=== PATIENT | male | born 1975 | race Caucasian/White ===

== ENCOUNTER → 2024-03-22 10:29 | Outpatient (BNVA) | payer MEDICARE, SELFPAY | PROVIDERS: PCP Family Medicine; Visit Provider Family Medicine | DX: G47.01 Insomnia due to medical condition (principal); E78.5 Hyperlipidemia, unspecified; R73.03 Prediabetes; R63.4 Abnormal weight loss; R11.0 Nausea; K29.30 Chronic superficial gastritis without bleeding; R19.7 Diarrhea, unspecified | CPT/HCPCS: 80053; 83036; 83690; 84439; 84443; 85025 ==

== ENCOUNTER 2024-07-01 18:26 | Emergency (ER) | payer MEDICARE, SELFPAY ==
[2024-07-01 18:31] VITALS: BP 173/94; PULSE 64; TEMP 36.9; O2SAT 98; BMI 25.2
--- NOTE | 2024-07-01 18:44 | ED_ITS ---
HPI - Dental/Oral General: Chief complaint: Dental/Oral Stated complaint: Left Side of Face Pain Time Seen by Provider: 07/01/24 18:37 Source: patient Mode of arrival: ambulatory Limitations: no limitations History of Present Illness: 48-year-old male who states that he has been having left lower dental pain for the last week. He has a history of poor dentition states been try to get a dentist but is not able to denies any fevers denies any trismus rates pain a 4 out of 10 denies any worse improving factors. Associated symptoms: Denies fever(s) Related Data Previous Rx's ?Medication ?Instructions ?Recorded epinephrine 0.3 mg/0.3 mL 0.3 mg (0.3 mL) IM Q4H PRN s evere 07/26/23 injection, auto-injector allergic reaction #2 ea venlafaxine 75 mg capsule,extended See Rx Instructions .Route 03/18/24 release 24 hr .COMPLEX #90 caps omeprazole 20 mg capsule,delayed 20 mg PO DAILY #60 ca ps 03/22/24 release atorvastatin 20 mg tablet 20 mg PO DAILY dyslipidemia #90 05/03/24 tabs lisinopril 5 mg tablet 5 mg PO DAILY #90 tabs 05/03 quetiapine 100 mg tablet See Rx Instructions .Route 0 06/20/24 .COMPLEX #90 tabs cephalexin 500 mg capsule 500 mg PO TID 7 days #21 cap s 07/01/24 naproxen 500 mg tablet (Naprosyn) 500 mg PO BID PRN pa in #20 tabs 07/01/24 Allergies Allergy/AdvReac Type Severity Reaction Status Date / Time bees Allergy hives and Uncoded 07/01/24 18:37 throat closes up Review of Systems Const: Denies: fever(s), chills, body aches or change in appetite ENMT: Reports: dental pain; Denies: throat pain Card: Denies: chest pain Resp: Denies: dyspnea GI: Denies: abdominal pain, nausea, vomiting or diarrhea Musc: Denies: neck pain or back pain Skin/Breast: Denies: rash Neuro: Denies: headache(s) PFSH ED PFSH: Medical History Prediabetes Insomnia Hypertension Dyslipidemia Bee sting allergy Bipolar 1 disorder Marijuana dependence Surgical History H/O thumb surgery Left Family History Father No problems noted. 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[employer] Physical Exam Const: COMMON NORMALS: no acute distress, patient oriented x3 and healthy a ppearing HENMT: COMMON NORMALS: normocephalic and atraumatic HEAD & SCALP: normocephalic and atraumatic OTHER: Poor dentition multiple caries tenderness over left lower tooth #22 no abscess no trismus Eye: COMMON NORMALS: conjunctivae normal CONJUNCTIVA: Yes conjunctivae normal Neck/C-Spine: COMMON NORMALS: full ROM and supple Chest: COMMONS NORMALS: normal inspection of the chest Resp: COMMON NORMALS: normal respiratory effort Cardio: COMMON NORMALS: regular rate RATE: regular rate Extremity: COMMON NORMALS: normal to inspection and full ROM Neuro: COMMON NORMALS: patient oriented x3, moves all extremities and no focal motor deficits Psych: COMMON NORMALS: mental status grossly normal, Normal thought process present and cooperative THOUGHT PROCESS: Normal thought process present Skin: COMMON NORMALS: no rashes or lesions noted and no wounds GENERAL SKIN EXAM: no rashes or lesions noted Course Vital Signs: Vital signs: Vital Signs Temperature 98.5 F 07/01/24 18:31 Pulse Rate 64 07/01/24 18:31 Blood Pressure 173/94 07/01/24 18:31 Pulse Oximetry 98 07/01/24 18:31 Oxygen Delivery Me thod Room Air 07/01/24 18:31 MDM - Dental/Oral Medical Decision Making Patient presents for dental pain no abscess or trismus noted will place him on antibiotics he has to follow-up with dentist return if worsening. Medical Records I reviewed the patient's medical records. No radiology studies performed this visit Discharge Plan Discharge Patient Disposition: Home Clinical Impression: Pain, dental Condition: Stable Prescriptions: New cephalexin 500 mg capsule 500 mg PO TID 7 Days Qty: 21 0RF naproxen [Naprosyn] 500 mg tablet 500 mg PO BID PRN (Reason: pain) Qty: 20 0RF No Action epinephrine 0.3 mg/0.3 mL auto-injector 0.3 mg IM Q4H PRN (Reason: severe allergic reaction) Qty: 2 1RF omeprazole 20 mg capsule,delayed release(DR/EC) 20 mg PO DAILY Qty: 60 0RF lisinopril 5 mg tablet 5 mg PO DAILY Qty: 90 1RF atorvastatin 20 mg tablet 20 mg PO DAILY Qty: 90 1RF venlafaxine 75 mg capsule,extended release 24hr See Rx Instructions .ROUTE .COMPLEX Qty: 90 0RF Dose Instruction: TAKE 1 CAPSULE BY MOUTH ONCE DAILY FOR MENTAL HEALTH Rx Instructions: TAKE 1 CAPSULE BY MOUTH ONCE DAILY FOR MENTAL HEALTH quetiapine 100 mg tablet See Rx Instructions .ROUTE .COMPLEX Qty: 90 0RF Dose Instruction: TAKE 1 TABLET BY MOUTH ONCE DAILY FOR SLEEP Rx Instructions: TAKE 1 TABLET BY MOUTH ONCE DAILY FOR SLEEP Discharge Orders: Discharge ED (Routine); Ordered 07/01/24 Ordered By: Kianna Baca Referrals: Ct Cabrales MD [Primary Care Provider] - Discharge Diet: Advance as tolerated Discharge Activity: Resume usual activity Patient Instructions: Toothache (ED) Print Language: Ukrainian Coding Level of Care Code ED Lining Layer for Surekha Anderson
[2024-07-01] MEDS: HYDROcodone-acetaminophen 7.5-325 mg Tablet 1 TAB PO (18:47)
[2024-07-01] MEDS: cephALEXin 500 mg Capsule PO (18:47)
[2024-07-01 18:51] VITALS: BP 169/79; PULSE 66; O2SAT 98
== END 2024-07-01 18:52 | disposition home or self-care (01) ==
PROVIDERS: Emergency Provider Emergency Medicine; PCP Family Medicine
DX: K08.89 Other specified disorders of teeth and supporting structures (principal); Z87.891 Personal history of nicotine dependence; E78.5 Hyperlipidemia, unspecified; I10 Essential (primary) hypertension
CPT/HCPCS: 99283; J9999

== ENCOUNTER → 2025-02-04 09:12 | Outpatient (BNVA) | payer MEDICARE, SELFPAY | PROVIDERS: PCP Family Medicine; Visit Provider Family Medicine | DX: R73.03 Prediabetes (principal); E78.5 Hyperlipidemia, unspecified | CPT/HCPCS: 80061; 83036 ==